=== PATIENT | female | born 1985 | race Caucasian/White ===

== ENCOUNTER 2022-03-01 13:30 | Outpatient (CLI) | payer OTHER, SELFPAY ==
--- NOTE | ~2022-03-01 | US_ITS ---
EXAMINATION: US thyroid DATE: 03/01/2022 14:32 INDICATION: thyroid nodule TECHNIQUE: Multiple ultrasound images of the thyroid were obtained. COMPARISON: None. FINDINGS: The right thyroid lobe measures 5.3 x 2.5 x 2.0 cm. The left thyroid lobe measures 5.3 1.6 x 1.3 cm. There are multiple bilateral thyroid nodules. The largest is a wider than tall 2.4 cm mixed solid an d cystic nodule with smooth margins and hypoechoic solid component with few internal echogenic foci ( TI-RADS 4, moderately suspicious , FNA if >=1.5 cm, annual followup is >=1 cm). There are several sma ller solid or predominantly solid nodule with otherwise similar imaging features (TI-RADS 5, highly s uspicious , FNA if >=1.0 cm, annual followup is >0.5 cm). These measure 0.9 cm in the mid right thyro id lobe 3 mm at the thyroid isthmus and 1.2 cm and 0.6 cm in the left thyroid lobe. IMPRESSION: 1. Multinodular goiter. Recommend ultrasound-guided biopsy of the largest TI RADS 5 nodule measuring 1.2 cm in the left thyroid lobe. Would also consider ultrasound-guided biopsy of the 2.4 cm TI RADS 4 right thyroid nodule. Reviewed, dictated and finalized at location A. R RUNNER IMPRESSION: 1. Multinodular goiter. Recommend ultrasound-guided biopsy of the largest TI RA DS 5 nodule measuring 1.2 cm in the left thyroid lobe. Would also consider ultr asound-guided biopsy of the 2.4 cm TI RADS 4 right thyroid nodule.
== END 2022-03-01 13:31 | disposition home or self-care (01) ==
LOC: ANHIMG 13:34
PROVIDERS: PCP Pediatrics; Visit Provider Obstetrics & Gynecology
DX: E04.2 Nontoxic multinodular goiter (principal)
CPT/HCPCS: 76536

== ENCOUNTER 2022-03-22 09:10 | Outpatient (CLI) | payer OTHER, SELFPAY ==
--- NOTE | ~2022-03-22 | US_ITS ---
EXAMINATION: US FNA additional, US FNA w image guidance DATE: 03/22/2022 09:59 INDICATION: Bilateral thyroid nodules TECHNIQUE: A time-out was performed to verify the patient's name, date of , and procedure to be performed . The procedure and its benefits and risks were discussed with the patient. Risks specifically discus sed included bleeding and infection. The patient understood the risks and agreed to proceed. The neck was prepped and draped in the usual sterile manner. Attention was first turned to the left thyroid n odule. 3 mL 1% lidocaine was used for local anesthesia. 6 passes were made with a 25G needle into th e lesion. Appropriate needle location was documented with continuous sonographic guidance. Attentio n was intensity right thyroid nodule. An additional 3 mL 1% lidocaine was used for local anesthesia. 6 passes were made with a 25G needle into the lesion. Appropriate needle location was documented wit h continuous sonographic guidance. Sterile bandages were applied. There were no immediate complicati ons. FINDINGS: Grayscale ultrasound images demonstrate biopsy needles advanced into a 1.2 cm TI RADS 5 left thyroid nodule. Subsequent images demonstrate biopsy needles advanced into the 2.2 cm TI RADS 4 right thyroid nodule. IMPRESSION: 1. Successful ultrasound-guided fine needle aspiration of a 1.2 cm TI RADS 5 left thyroid nodule. 2. Successful ultrasound-guided fine-needle aspiration of a 2.2 cm TI RADS 4 right thyroid nodule. Reviewed, dictated and finalized at location A. PY STRINGER IMPRESSION: 1. Successful ultrasound-guided fine needle aspiration of a 1.2 cm TI RADS 5 l eft thyroid nodule. 2. Successful ultrasound-guided fine-needle aspiration of a 2.2 cm TI RADS 4 ri ght thyroid nodule.
== END 2022-03-22 09:11 | disposition home or self-care (01) ==
PROVIDERS: PCP Pediatrics; Visit Provider Obstetrics & Gynecology
DX: R92.8 Other abnormal and inconclusive findings on diagnostic imaging of breast (principal)
CPT/HCPCS: 10005; 10006; 88173; 88305

== ENCOUNTER 2022-08-17 10:55 | Outpatient (CLI) | payer OTHER, SELFPAY ==
[2022-08-17 11:16] VITALS: BP 141/95; PULSE 89
[2022-08-17 11:30] VITALS: BP 135/95; PULSE 87
[2022-08-17 11:33] LABS: Basophils Percent Auto 0.3 % (0.2-1.2); Eosinophils Absolute Auto 0.2 K/mm3 (0-0.3); Eosinophils Percent Auto 2.3 % (0-4.4); Hematocrit 34.4 % (37.0-47.0); Hemoglobin 11.2 g/dL (12.0-15.0); Immature Granulocyte Absolute 0.03 K/mm3 (0.00-0.031); Immature Granulocyte Percent A 0.4 % (0-0.5); Lymphocytes Absolute Auto 1.75 K/mm3 (0.9-3.2); Mean Corpuscular HGB Conc 32.6 g/dl (32-36); Mean Corpuscular Hemoglobin 29.3 pg (26-34); Mean Corpuscular Volume 90.1 fl (80-100); Mean Platelet Volume 9.2 fl (7.4-10.4); Monocytes Absolute Auto 0.7 K/mm3 (0.1-0.6); Monocytes Percent Auto 9.2 % (2.6-8.5); Neutrophils Absolute Auto 5.3 K/mm3 (1.3-6.7); Neutrophils Percent Auto 65.8 % (45.5-73.1); Platelet Count Result 260 k/mm3 (150-375); Red Blood Count 3.82 M/mm3 (4.2-5.4)
[2022-08-17 11:41] LABS: Appearance Urine Cloudy (Clear); Bacteria Urine Rare /hpf; Bilirubin Urine Negative (Negative); Blood Urine Negative (Negative); Color Urine Yellow (Yellow); Glucose Urine UA Negative (Negative); Ketones Urine Negative (Negative); Leukocyte Esterase Ur 1+ LEU/UL (NEGATIVE); Nitrate Urine Negative (Negative); Non Pathogenic Casts 0-2; Protein Urine Trace mg/dL (Negative); RBC Urine 0-2 /hpf (0-2); Specific Grav Ur 1.012 (1.001-1.035); Squamous Epithelial Cell Urine Many /hpf (Few); Urobilinogen Urine 0.2 mg/dL (<2.0)
[2022-08-17 11:45] VITALS: BP 143/91; PULSE 84
[2022-08-17 11:45] LABS: Alanine Aminotransferase 26 U/L (6-35); Albumin Level 3.6 g/dL (3.5-5.1); Alkaline Phosphatase 130 U/L (38-126); Anion Gap 4 mmol/L (8-16); Aspartate Amino Transferase 33 U/L (14-36); Bilirubin,Total 0.3 mg/dL (0.2-1.3); Blood Urea Nitrogen 5 mg/dL (7-17); Calcium 8.9 mg/dL (8.4-10.2); Carbon Dioxide 22 mmol/L (22-30); Chloride 109 mmol/L (98-107); Estimated Glomerular Filt Rate > 60; Glucose 89 mg/dL (65-110); Potassium 3.8 mmol/L (3.4-5.0); Sodium 135 mmol/L (137-145); Uric Acid 5.4 mg/dL (2.5-7.5)
[2022-08-17 11:51] LABS: Add Urine Microscopic? YES
[2022-08-17 11:57] VITALS: BMI 29.4
[2022-08-17 12:25] LABS: Creatinine Urine 78.1 mg/dL; Total Protein Urine Random 14 mg/dL; Ur Ttl Prot Creatinine Ratio 0.18 mg/mg (0-0.20)
--- NOTE | 2022-08-17 12:30 | PC.NURSE ---
Dr. Riley on the unit. Lab results and blood pressures reviewed. NST reactive. MD request pt to see him in the office 1 week from today. Pt okay to go home.
[2022-08-17 12:40] VITALS: BP 141/95; PULSE 87
== END 2022-08-17 12:40 | disposition home or self-care (01) ==
LOC: ANHOBOP 10:59 → ANHOBPP 11:00
PROVIDERS: PCP Pediatrics; Visit Provider Obstetrics & Gynecology
DX: O13.9 Gestational [pregnancy-induced] hypertension without significant proteinuria, unspecified trimester (principal); Z3A.00 Weeks of gestation of pregnancy not specified
CPT/HCPCS: 36415; 59025; 80053; 81001; 82570; 84156; 84550; 85025; 87086; 87088; 99199

== ENCOUNTER 2022-08-24 08:40 | Outpatient (CLI) | payer OTHER, SELFPAY ==
[2022-08-24 09:06] VITALS: BP 145/93; PULSE 87
[2022-08-24 09:13] LABS: Basophils Percent Auto 0.1 % (0.2-1.2); Eosinophils Absolute Auto 0.2 K/mm3 (0-0.3); Eosinophils Percent Auto 2.1 % (0-4.4); Hemoglobin 11.6 g/dL (12.0-15.0); Immature Granulocyte Absolute 0.03 K/mm3 (0.00-0.031); Immature Granulocyte Percent A 0.3 % (0-0.5); Lymphocytes Absolute Auto 1.74 K/mm3 (0.9-3.2); Mean Corpuscular HGB Conc 33.1 g/dl (32-36); Mean Corpuscular Hemoglobin 29.4 pg (26-34); Mean Corpuscular Volume 88.6 fl (80-100); Mean Platelet Volume 9.4 fl (7.4-10.4); Monocytes Absolute Auto 0.7 K/mm3 (0.1-0.6); Monocytes Percent Auto 7.2 % (2.6-8.5); Neutrophils Absolute Auto 6.6 K/mm3 (1.3-6.7); Neutrophils Percent Auto 71.3 % (45.5-73.1); Platelet Count Result 269 k/mm3 (150-375); Red Blood Count 3.95 M/mm3 (4.2-5.4); Red Cell Distribution Width 14.3 % (11.5-14.5); White Blood Count 9.2 K/mm3 (4.5-10.0)
[2022-08-24 09:15] VITALS: BP 136/90; PULSE 87
[2022-08-24 09:17] LABS: Add Urine Microscopic? YES; Appearance Urine Clear (Clear); Bacteria Urine None Seen /hpf; Bilirubin Urine Negative (Negative); Blood Urine Negative (Negative); Color Urine Yellow (Yellow); Glucose Urine UA Negative (Negative); Ketones Urine Negative (Negative); Leukocyte Esterase Ur 1+ LEU/UL (NEGATIVE); Nitrate Urine Negative (Negative); Non Pathogenic Casts 0-2; Protein Urine Negative (Negative); RBC Urine 0-2 /hpf (0-2); Specific Grav Ur 1.015 (1.001-1.035); Squamous Epithelial Cell Urine Moderate /hpf (Few); Urobilinogen Urine 0.2 mg/dL (<2.0); pH Urine 6.5 (5.0-9.0)
[2022-08-24 09:30] VITALS: BP 140/93; PULSE 87
[2022-08-24 09:45] VITALS: BP 139/92; PULSE 95
[2022-08-24 09:53] LABS: Alanine Aminotransferase 24 U/L (6-35); Albumin Level 3.8 g/dL (3.5-5.1); Alkaline Phosphatase 145 U/L (38-126); Anion Gap 9 mmol/L (8-16); Aspartate Amino Transferase 27 U/L (14-36); Bilirubin,Total 0.3 mg/dL (0.2-1.3); Blood Urea Nitrogen 7 mg/dL (7-17); Calcium 9.5 mg/dL (8.4-10.2); Carbon Dioxide 20 mmol/L (22-30); Chloride 107 mmol/L (98-107); Estimated Glomerular Filt Rate > 60; Glucose 87 mg/dL (65-110); Potassium 3.9 mmol/L (3.4-5.0); Sodium 136 mmol/L (137-145); Uric Acid 6.2 mg/dL (2.5-7.5)
[2022-08-24 10:00] VITALS: BP 138/82; PULSE 79
[2022-08-24 10:15] VITALS: BP 139/86; PULSE 83
[2022-08-24 11:40] LABS: Total Protein Urine Random 10 mg/dL; Ur Ttl Prot Creatinine Ratio 0.09 mg/mg (0-0.20)
== END 2022-08-24 10:37 | disposition home or self-care (01) ==
LOC: ANHOBOP 08:44 → ANHOBPP 08:44
PROVIDERS: PCP Pediatrics; Visit Provider Obstetrics & Gynecology
DX: O13.9 Gestational [pregnancy-induced] hypertension without significant proteinuria, unspecified trimester (principal); Z3A.00 Weeks of gestation of pregnancy not specified
CPT/HCPCS: 36415; 59025; 80053; 81001; 82570; 84156; 84550; 85025; 87086; 87088; 99199

== ENCOUNTER 2022-08-25 12:29 | Outpatient (NON) | payer OTHER, SELFPAY ==
[2022-08-25 12:29] VITALS: BMI 29.5
[2022-08-25 13:09] LABS: Collection Time Urine 24 HOURS; Patient Weight 177 Lbs
[2022-08-25 13:10] LABS: Total Volume 24 Hour Urine 3500 ml
[2022-08-25 13:15] LABS: Specific Gravity Ur 1.012; Total Volume 24 Hour Urine 3500 ml
[2022-08-25 13:19] LABS: Total Protein Urine 24 Hr 455 mg/24hr (28-141); Total Protein Urine Random 13 mg/dL
[2022-08-25 13:47] LABS: Creatinine Clearance Urine 173.4 ml/min (75-125); Creatinine Urine 38.6 mg/dL
== END 2022-08-25 12:30 | disposition home or self-care (01) ==
LOC: ANHOBOP 12:49
PROVIDERS: PCP Pediatrics; Visit Provider Obstetrics & Gynecology
DX: O16.9 Unspecified maternal hypertension, unspecified trimester (principal); Z3A.00 Weeks of gestation of pregnancy not specified
CPT/HCPCS: 81050; 82575; 84156

== ENCOUNTER 2022-08-31 13:49 | Outpatient (CLI) | payer OTHER, SELFPAY ==
[2022-08-31 14:08] VITALS: BP 146/90; PULSE 86
[2022-08-31 14:15] VITALS: BP 141/90; PULSE 83
[2022-08-31 14:24] LABS: Basophils Percent Auto 0.1 % (0.2-1.2); Eosinophils Absolute Auto 0.2 K/mm3 (0-0.3); Eosinophils Percent Auto 2.4 % (0-4.4); Hematocrit 31.3 % (37.0-47.0); Hemoglobin 10.5 g/dL (12.0-15.0); Immature Granulocyte Absolute 0.03 K/mm3 (0.00-0.031); Immature Granulocyte Percent A 0.4 % (0-0.5); Lymphocytes Absolute Auto 1.63 K/mm3 (0.9-3.2); Lymphocytes Percent Auto 21.5 % (18.3-44.2); Mean Corpuscular HGB Conc 33.5 g/dl (32-36); Mean Corpuscular Hemoglobin 29.6 pg (26-34); Mean Corpuscular Volume 88.2 fl (80-100); Mean Platelet Volume 9.6 fl (7.4-10.4); Monocytes Absolute Auto 0.6 K/mm3 (0.1-0.6); Monocytes Percent Auto 7.9 % (2.6-8.5); Neutrophils Absolute Auto 5.1 K/mm3 (1.3-6.7); Neutrophils Percent Auto 67.7 % (45.5-73.1); Platelet Count Result 241 k/mm3 (150-375); Red Blood Count 3.55 M/mm3 (4.2-5.4); Red Cell Distribution Width 14.5 % (11.5-14.5); White Blood Count 7.6 K/mm3 (4.5-10.0)
[2022-08-31 14:30] VITALS: BP 138/89; PULSE 80
[2022-08-31 14:30] LABS: Appearance Urine Cloudy (Clear); Bacteria Urine None Seen /hpf; Bilirubin Urine Negative (Negative); Blood Urine Negative (Negative); Color Urine Yellow (Yellow); Glucose Urine UA Negative (Negative); Ketones Urine Negative (Negative); Leukocyte Esterase Ur Trace LEU/UL (NEGATIVE); Nitrate Urine Negative (Negative); Non Pathogenic Casts 0-2; Protein Urine Trace mg/dL (Negative); RBC Urine 0-2 /hpf (0-2); Specific Grav Ur 1.017 (1.001-1.035); Squamous Epithelial Cell Urine Few /hpf (Few); Urobilinogen Urine 0.2 mg/dL (<2.0); pH Urine 5.5 (5.0-9.0)
[2022-08-31 14:34] LABS: Alanine Aminotransferase 24 U/L (6-35); Albumin Level 3.5 g/dL (3.5-5.1); Alkaline Phosphatase 123 U/L (38-126); Anion Gap 6 mmol/L (8-16); Aspartate Amino Transferase 29 U/L (14-36); Bilirubin,Total 0.3 mg/dL (0.2-1.3); Blood Urea Nitrogen 10 mg/dL (7-17); Calcium 9.7 mg/dL (8.4-10.2); Carbon Dioxide 22 mmol/L (22-30); Chloride 106 mmol/L (98-107); Estimated Glomerular Filt Rate > 60; Glucose 104 mg/dL (65-110); Potassium 3.8 mmol/L (3.4-5.0); Sodium 134 mmol/L (137-145); Uric Acid 6.6 mg/dL (2.5-7.5)
[2022-08-31 14:37] LABS: Add Urine Microscopic? YES
[2022-08-31 14:45] VITALS: BP 125/81; PULSE 81
[2022-08-31 14:52] LABS: Creatinine Urine 124.5 mg/dL; Total Protein Urine Random 20 mg/dL; Ur Ttl Prot Creatinine Ratio 0.16 mg/mg (0-0.20)
--- NOTE | 2022-08-31 14:58 | PC.NURSE ---
Called Dr. Riley with lab results and BPs. Reactive tracing. July D/C home.
== END 2022-08-31 15:02 | disposition home or self-care (01) ==
LOC: ANHOBOP 13:57 → ANHOBPP 14:02
PROVIDERS: PCP Pediatrics; Visit Provider Obstetrics & Gynecology
DX: O13.9 Gestational [pregnancy-induced] hypertension without significant proteinuria, unspecified trimester (principal); Z3A.00 Weeks of gestation of pregnancy not specified
CPT/HCPCS: 36415; 59025; 80053; 81001; 82570; 84156; 84550; 85025; 87086; 87088; 99199

== ENCOUNTER 2022-09-08 14:51 | Observation (INO) | payer OTHER, SELFPAY ==
[2022-09-08] VITALS (14 sets, daily range): BP systolic 144–163; BP diastolic 95–113; PULSE 74–90; BMI 30.6
[2022-09-08 16:01] LABS: Basophils Percent Auto 0.2 % (0.2-1.2); Eosinophils Absolute Auto 0.3 K/mm3 (0-0.3); Eosinophils Percent Auto 2.7 % (0-4.4); Hematocrit 32.9 % (37.0-47.0); Hemoglobin 10.9 g/dL (12.0-15.0); Immature Granulocyte Absolute 0.05 K/mm3 (0.00-0.031); Immature Granulocyte Percent A 0.5 % (0-0.5); Lymphocytes Absolute Auto 2.01 K/mm3 (0.9-3.2); Mean Corpuscular HGB Conc 33.1 g/dl (32-36); Mean Corpuscular Hemoglobin 29.3 pg (26-34); Mean Corpuscular Volume 88.4 fl (80-100); Mean Platelet Volume 9.7 fl (7.4-10.4); Monocytes Absolute Auto 0.8 K/mm3 (0.1-0.6); Monocytes Percent Auto 7.9 % (2.6-8.5); Neutrophils Absolute Auto 6.5 K/mm3 (1.3-6.7); Neutrophils Percent Auto 67.7 % (45.5-73.1); Platelet Count Result 266 k/mm3 (150-375); Red Blood Count 3.72 M/mm3 (4.2-5.4); Red Cell Distribution Width 14.8 % (11.5-14.5); White Blood Count 9.6 K/mm3 (4.5-10.0)
[2022-09-08 16:06] LABS: Appearance Urine Clear (Clear); Bacteria Urine Rare /hpf; Bilirubin Urine Negative (Negative); Blood Urine Negative (Negative); Color Urine Yellow (Yellow); Glucose Urine UA Negative (Negative); Ketones Urine Negative (Negative); Leukocyte Esterase Ur 1+ LEU/UL (NEGATIVE); Nitrate Urine Negative (Negative); Non Pathogenic Casts 0-2; Protein Urine 1+ mg/dL (Negative); RBC Urine 0-2 /hpf (0-2); Specific Grav Ur 1.018 (1.001-1.035); Squamous Epithelial Cell Urine Moderate /hpf (Few); Urobilinogen Urine 0.2 mg/dL (<2.0); WBC Urine 21-50 /hpf (0-3)
[2022-09-08 16:12] LABS: Alanine Aminotransferase 21 U/L (6-35); Alkaline Phosphatase 174 U/L (38-126); Anion Gap 9 mmol/L (8-16); Aspartate Amino Transferase 29 U/L (14-36); Bilirubin,Total 0.4 mg/dL (0.2-1.3); Blood Urea Nitrogen 11 mg/dL (7-17); Calcium 10.2 mg/dL (8.4-10.2); Carbon Dioxide 22 mmol/L (22-30); Chloride 107 mmol/L (98-107); Estimated Glomerular Filt Rate > 60; Glucose 82 mg/dL (65-110); Potassium 3.9 mmol/L (3.4-5.0); Sodium 138 mmol/L (137-145); Uric Acid 6.4 mg/dL (2.5-7.5)
[2022-09-08 16:17] LABS: Creatinine Urine 86.6 mg/dL; Total Protein Urine Random 54 mg/dL; Ur Ttl Prot Creatinine Ratio 0.62 mg/mg (0-0.20)
--- NOTE | 2022-09-08 16:22 | OBADM ---
This patient, Marina Corona, admitted to the OB room OB Post 115 for observation. Patient/family oriented to hospital policies and general routines including ID bracelet, bed and alarms, visiting hours, pain management, procedures, bathroom and other care routines, personal items, smoking policy, room service/diet, and visiting hours. Patient/Family are encouraged to report perceived risks to care and to ask questions if they do not understand what they are told or what they should do.
[2022-09-08] MEDS: LABETALOL HCL 100 MG TABLET 200 MG PO (16:24)
[2022-09-08 16:31] LABS: Add Urine Microscopic? YES
[2022-09-08] MEDS: CALCIUM CARBONATE (TUMS) 500 MG (200 MG ELEMENTAL) PO (16:50)
[2022-09-08] MEDS: LABETALOL HCL 100 MG TABLET PO (17:32)
--- NOTE | 2022-09-11 12:45 | PM.OBTRLD ---
OB - Triage/Final Diagnosis Visit Information Reason for evaluation: threatened labor Comments/Additional reasons for admission: I have assessed the risk for this patient, Marina Corona, and determined that she would benefit from observation care. Evaluation Laboratory results: Laboratory Tests 09/08/22 15:46 WBC 9.6 RBC 3.72 L Hgb 10.9 L Hct 32.9 L MCV 88.4 MCH 29.3 MCHC 33.1 RDW 14.8 H Plt Count 266 MPV 9.7 Immature Gran % (Auto) 0.5 Neut % (Auto) 67.7 Lymph % (Auto) 21.0 Traill % (Auto) 7.9 Eos % (Auto) 2.7 Baso % (Auto) 0.2 Lymph # (Auto) 2.01 Traill # (Auto) 0.8 H Eos # (Auto) 0.3 Baso # (Auto) 0.0 Abs Immat Gran (auto) 0.05 H Absolute Neuts (auto) 6.5 Absolute Nucleated RBC 0.0 Nucleated RBC % 0.0 Sodium 138 Potassium 3.9 Chloride 107 Carbon Dioxide 22 Anion Gap 9 BUN 11 Creatinine 0.60 L Estim Creat Clear Calc Not Reportable Estimated GFR > 60 Glucose 82 Uric Acid 6.4 Calcium 10.2 Total Bilirubin 0.4 AST 29 ALT 21 Alkaline Phosphatase 174 H Total Protein 8.0 Albumin 4.0 Urine Color Yellow Urine Appearance Clear Urine pH 6.0 Ur Specific [place] 1.018 Urine Protein 1+ H Urine Glucose (UA) Negative Urine Ketones Negative Ur Blood (Man) Negative Urine Nitrate Negative Urine Bilirubin Negative Urine Urobilinogen 0.2 Ur Leukocyte Esterase 1+ H Urine RBC 0-2 Urine WBC 21-50 Ur Squamous Epith Cells Moderate Urine Bacteria Rare Urine Casts 0-2 U Random Total Protein 54 Urine Creatinine 86.6 Protein/Creat Ratio 2 0.62 H
== END 2022-09-08 18:34 | disposition home or self-care (01) ==
PROVIDERS: Admitting Provider Obstetrics & Gynecology; PCP Pediatrics; Visit Provider Obstetrics & Gynecology
DX: O47.1 False labor at or after 37 completed weeks of gestation (principal); O16.3 Unspecified maternal hypertension, third trimester; Z3A.37 37 weeks gestation of pregnancy
CPT/HCPCS: 36415; 80053; 81001; 82570; 84156; 84550; 85025; 87086; 87088; A9270; G0378; G0379

== ENCOUNTER 2022-09-11 17:04 | Inpatient (IN) | payer OTHER, SELFPAY ==
[2022-09-11] VITALS (26 sets, daily range): BP systolic 134–156; BP diastolic 80–97; PULSE 72–94; RESP 18; TEMP 36.6–36.8; O2SAT 96–99; BMI 30.4
--- NOTE | 2022-09-11 17:04 | LDADM ---
This patient, Marina Corona, was admitted to Labor/Delivery/Recovery 102 on 09/11/22 at 17:04. Plans for labor, pain management and were discussed with patient. Patient/family oriented to hospital policies and general routines including ID bracelet, bed and alarms, visiting hours, pain management, procedures, bathroom and other care routines, personal items, smoking policy, room service/diet and guest tray routines, infant security routines, and visiting hours. Patient/Family are encouraged to report perceived risks to care and to ask questions if they do not understand what they are told or what they should do. See OBIX for further documentation.
[2022-09-11 17:51] LABS: Basophils Percent Auto 0.2 % (0.2-1.2); Eosinophils Absolute Auto 0.3 K/mm3 (0-0.3); Eosinophils Percent Auto 2.3 % (0-4.4); Hemoglobin 10.3 g/dL (12.0-15.0); Immature Granulocyte Absolute 0.04 K/mm3 (0.00-0.031); Immature Granulocyte Percent A 0.4 % (0-0.5); Lymphocytes Absolute Auto 1.58 K/mm3 (0.9-3.2); Lymphocytes Percent Auto 14.3 % (18.3-44.2); Mean Corpuscular HGB Conc 33.2 g/dl (32-36); Mean Corpuscular Hemoglobin 29.3 pg (26-34); Mean Corpuscular Volume 88.3 fl (80-100); Mean Platelet Volume 10.3 fl (7.4-10.4); Monocytes Absolute Auto 0.8 K/mm3 (0.1-0.6); Monocytes Percent Auto 7.6 % (2.6-8.5); Neutrophils Absolute Auto 8.3 K/mm3 (1.3-6.7); Neutrophils Percent Auto 75.2 % (45.5-73.1); Platelet Count Result 232 k/mm3 (150-375); Red Blood Count 3.51 M/mm3 (4.2-5.4); Red Cell Distribution Width 15.2 % (11.5-14.5); White Blood Count 11.1 K/mm3 (4.5-10.0)
[2022-09-11 18:04] LABS: Alanine Aminotransferase 20 U/L (6-35); Albumin Level 3.5 g/dL (3.5-5.1); Alkaline Phosphatase 157 U/L (38-126); Anion Gap 1 mmol/L (8-16); Aspartate Amino Transferase 27 U/L (14-36); Bilirubin,Total 0.3 mg/dL (0.2-1.3); Blood Urea Nitrogen 12 mg/dL (7-17); Calcium 9.5 mg/dL (8.4-10.2); Carbon Dioxide 21 mmol/L (22-30); Chloride 109 mmol/L (98-107); Estimated CRCL calculation 90 ml/min; Estimated Glomerular Filt Rate > 60; Glucose 92 mg/dL (65-110); Potassium 4.3 mmol/L (3.4-5.0); Sodium 131 mmol/L (137-145); Uric Acid 7.7 mg/dL (2.5-7.5)
[2022-09-11] MEDS: LACTATED RINGERS 1,000 ML 125 ML IV CONT (18:09)
[2022-09-11] MEDS: AMPICILLIN 2 GM/NS 100 ML 2 GM/100 ML BAG IVPB (18:09)
[2022-09-11] MEDS: DINOPROSTONE 10 MG VAG INSERT VAGINAL (18:10)
[2022-09-11] MEDS: LABETALOL HCL 100 MG TABLET 200 MG PO (21:13)
[2022-09-11] MEDS: AMPICILLIN 1 GM/NS 50 ML 1 GM/50 ML BAG IVPB (22:14)
[2022-09-11] MEDS: ZOLPIDEM TARTRATE (*CRX) 5 MG TABLET PO (22:15)
[2022-09-12] VITALS (183 sets, daily range): BP systolic 116–187; BP diastolic 60–127; PULSE 65–118; RESP 16–18; TEMP 36.4–37.5; O2SAT 91–100
[2022-09-12] MEDS: AMPICILLIN 1 GM/NS 50 ML 1 GM/50 ML BAG IVPB ×4 (02:04→14:20)
[2022-09-12] MEDS: OXYTOCIN 30 UNITS/NS 500 ML 30 UNITS/500 ML BAG 6 UNITS IV CONT (06:45)
[2022-09-12] MEDS: FAMOTIDINE 20 MG/2 ML VIAL IV PUSH (07:41)
[2022-09-12] MEDS: LABETALOL HCL 100 MG TABLET 200 MG PO (08:02)
[2022-09-12] MEDS: LACTATED RINGERS 1,000 ML 125 ML IV CONT ×2 (10:34→19:23)
--- NOTE | 2022-09-12 13:13 | P.HP_ITS ---
Obstetrics - Admit Note Admission Note: Late entry from 0845 on 09/12/22 record reviewed. Additions to the history and/or subsequent changes in the physical findings follow. 37 y/o G1 at 37 4/7 weeks with chronic HTN, now with worsening bp control. No headaches, visual field change, abdominal pain or edema. GBS bacteruria. C ervidil overnight, has been withdrawn. Now receiving oxytocin. AVSS ABD soft, nontender, gravid, vertex EXT nontender Cervix 2/80/-2. AROM with clear fluid. IUPC placed. A: IUP at 37 4/7 weeks with CHTN, worsening bp control. Doubt superimposed preeclampsia. GBS bacteruria. P: Ampicillin, oxytocin. Anticipate .
--- NOTE | 2022-09-12 13:17 | PM.OBPNLAB ---
Pain Control Date/time seen: 09/12/22 13:17 Comments: Comfortable with epidural. Pelvic Exam Dilation (cm): 4 Effacement (%): 90 station: -1 Contractions Contraction frequency: 3 Contraction pattern: Regular Status status: Category l Assessment and Plan Comments: Continue oxytocin, ampicillin. Anticipate .
[2022-09-12] MEDS: SODIUM CHLORIDE 0.9% IV 300 ML 600 ML I-UTERINE (13:47)
[2022-09-12] MEDS: ONDANSETRON INJ 4 MG/2 ML VIAL IV PUSH ×2 (14:22→18:57)
--- NOTE | 2022-09-12 16:21 | PC.NURSE ---
1040 - Introductions were made and mother shared how she would like to feed her baby with . Encouraged mother to place [id number] until the first feeding if is stable and to wait on the weight to help stabilize, reduce stress, and improve latching by allowing infant time to explore parent's chest using instincts. Education was shared on how to protect her milk supply with latching infant and/or using hand expression to remove milk if infant doesn't latch in the first hour, then finger feed colostrum to the to preserve breast focus. Demonstration given on how to hand express using tool. Resources provided with educational trifold for bonding and feeding infant. Parents voiced understanding of information and to call if there is a request for assistance.
--- NOTE | 2022-09-12 16:53 | PM.OBPNLAB ---
Pain Control Date/time seen: 09/12/22 16:53 Comments: Comfortable with epidural. Pelvic Exam Dilation (cm): 10 Effacement (%): 100 station: +1 Contractions Contraction frequency: 4 Contraction pattern: Regular Status status: Category l Assessment and Plan Pitocin rate (mU/min): 12 Comments: Begin pushing.
[2022-09-12] MEDS: miSOPROStol 200 MCG TABLET 1000 MCG RECTAL (18:30)
[2022-09-12] MEDS: OXYTOCIN 30 UNITS/NS 500 ML 30 UNITS/500 ML BAG 125 UNITS IV CONT (18:44)
--- NOTE | 2022-09-12 19:21 | PM.OBPRVD ---
OB - Delivery Note Procedure Delivery date: 09/12/22 Procedure: Induction of labor with Events: Chronic Hypertension and Positive Group B Strep (GBS) Induction method: Per Cervidil Protocol Delivery augmentation: Pitocin Delivery monitor: External FHT, External Uterine and Internal Uterine Route of delivery: Laceration Description: Perineal - 2nd Degree and Vaginal Delivery repair: vicryl (3-0) Specimen: Yes (Cord blood, placenta) Quantitative Blood Loss (ml): 1,175 Anesthesia type: Epidural Disposition: PACU Complications: Hemorrhage. Narrative: 37 y/o G1 at 37 4/7 weeks gestation who presented to the hospital for induction of labor. She was given ampicillin for GBS bacteruria. Cervidil was placed overnight, then withdrawn the next morning. Oxytocin was administered intravenously. Amniotomy was performed with return of clear fluid. She received an epidural for pain control. Her labor progressed and her cervix dilated completely. She pushed with good effort and delivered the 's head to the perineum, followed by the body. The nose and mouth were bulb suctioned. After a delay, the cord was clamped and cut. The infant was handed off the field. Cord blood was collected. The placenta delivered spontaneously and was grossly normal in appearance. The usual 3 vessel cord was noted. Uterine atony was addressed with uterine massage, IV oxytocin, and 1000 mcg Cytotec. The uterus responded well. A second degree midline perineal laceration was sustained. This was reapproximated using 3 0 Vicryl in the usual layered fashion, and hemostasis was excellent here. Bleeding was persistent from complicated lacerations of an apparent and previously unrecognized vaginal septum. The vaginal lacerations were reapproximated with running sutures of 3-0 vicryl, but there was still some oozing. A López catheter was replaced and 5 feet of vaginal packing placed. Needle and instrument counts were correct. An IV fluid bolus was administered, and a second IV line was placed. She was given TXA 1 gram IV. Hemostasis improved. Plan to follow closely. I was present and scrubbed for the entire delivery. Baby Date of : 09/12/22 Time of : 18:18 Weeks of gestation at delivery: 37 Infant gender: Male Weight (pounds): 6 Weight (ounces): 10 presentation: vertex position: Left Occiput Anterior Placenta delivery description: Spontaneous and Normal Configuration Cord Vessel Description: 3 Vessels, Nuchal Cord (x2) and Delayed Cord Clamping score one minute: 8 score five minutes: 9
[2022-09-12 19:28] LABS: Hematocrit 27.5 % (37.0-47.0); Hemoglobin 8.8 g/dL (12.0-15.0)
[2022-09-12] MEDS: TRANEXAMIC ACID 1,000MG/ISO100 1,000 MG/100 ML BAG 200 MG IVPB (19:31)
--- NOTE | 2022-09-12 19:33 | PM.OBDSVD ---
DS: Admitting Diagnosis Discharge Date 09/15/22 Admitting Diagnosis IUP at 37 weeks Chronic HTN with worsening bp control GBS bacteruria DS: Discharge Diagnosis Discharge Diagnosis (1) (normal spontaneous vaginal delivery): Code(s): O80 - Encounter for full-term uncomplicated delivery Status: Acute (2) Chronic hypertension affecting : Code(s): O10.919 - Unspecified pre-existing hypertension complicating , unspecified trimester Status: Acute (3) GBS bacteriuria: Code(s): R82.71 - Bacteriuria Status: Acute (4) hemorrhage of vagina: Code(s): O72.1 - Other immediate hemorrhage Status: Acute OB - DS: Summary OB Procedures : None and PIH Mgmt OB Procedures Intrapartum: Spontaneous Vag Delivery and GBS prophylaxis OB Procedures: : Transfusion Time Spent with Patient Time attestation: Total time spent providing and/or coordinating discharge services: DS: Data Data Completed and Pending Pending studies at discharge: Pending at discharge 09/12/22 18:22 Surgical [PTH] Routine Labs on day of discharge: Labs from last 24 hours 09/12/22 19:18 Hgb 8.8 L Hct 27.5 L Discharge Plan Discharge Attending physician on discharge: Jean-Paul Riley Discharging Clinician: Jean-Paul Riley Patient Disposition: Home, Self-Care Activity: pelvic rest Diet: regular Discharge Instructions: Call or return if temperature above 100.4? F, increased abdominal pain, increased vaginal bleeding or any new problems. Stand Alone Forms: General Discharge Information Follow-up/Referrals: Jean-Paul Riley MD [Physician] - 6 Weeks Discharge Medications: New Niferex (Sumalate-Quatrefolic) 150 mg iron- 60 mg-1 mg tablet 1 tablet PO DAILY Qty: 30 0RF ibuprofen 600 mg tablet 600 mg PO Q6H PRN (Reason: cramps) Qty: 30 0RF Continued prenat.vits,ihsan,[id number] Tablet 1 tablet PO DAILY Discontinued aspirin [Baby Aspirin] 81 mg Tablet,Chewable 81 mg PO DAILY labetalol 200 mg Tablet 200 mg PO TID Qty: 30 0RF Date of admission: 09/11/22 17:04 Primary Care Provider: LakeshaJignesh Admitting Provider: Jean-Paul Riley Attending physician on admission: Jean-Paul Riley Condition: Stable
[2022-09-12] MEDS: BENZOCAINE 20% AER SPR (*SP) 56 GM CAN 1 SPRAY TOPICAL (20:33)
[2022-09-12] MEDS: WITCH HAZEL 40 PADS 1 PAD TOPICAL (20:33)
[2022-09-12] MEDS: IBUPROFEN SUSPENSION 200 MG/10 ML UDC 600 MG PO (20:33)
--- NOTE | 2022-09-12 22:26 | ADMGEN ---
This patient, Marina Corona, was admitted to OB 2nd Floor Room 283-00. Patient/family oriented to hospital policies and general routines including ID bracelet, bed and alarms, visiting hours, pain management, procedures, bathroom and other care routines, personal items, smoking policy, room service/diet, and visiting hours. Information on how to activate the Rapid Response Team has been discussed. Patient/Family are encouraged to report perceived risks to care and to ask questions if they do not understand what they are told or what they should do.
[2022-09-13] VITALS (19 sets, daily range): BP systolic 125–149; BP diastolic 74–94; PULSE 81–94; RESP 14–20; TEMP 36.3–36.9; O2SAT 95–100
[2022-09-13] MEDS: IBUPROFEN SUSPENSION 200 MG/10 ML UDC 600 MG PO ×2 (01:49→22:19)
[2022-09-13] MEDS: LACTATED RINGERS 1,000 ML 100 ML IV CONT (03:14)
[2022-09-13 06:15] LABS: Hemoglobin 6.6 g/dL (12.0-15.0)
[2022-09-13 06:16] LABS: Hematocrit 19.9 % (37.0-47.0)
[2022-09-13 08:10] LABS: Rapid Plasma Reagin Non-Reactive (NonReactive)
[2022-09-13] MEDS: POLYSACCHARIDE IRON COMPLEX 150 MG CAPSULE PO ×2 (08:30→17:56)
--- NOTE | 2022-09-13 09:14 | PM.OBPNVD ---
OB - PN: Subj Subjective Date/time seen: 09/13/22 09:14 Narrative: Pain OK. Minimal vaginal bleeding overnight. No shortness of breath or chest pain. OB - PN: Obj Data Labs 09/13/22 04:47 09/11/22 17:35 Labs: Laboratory Results - last 24 hr 09/11/22 09/12/22 09/13/22 17:35 19:18 04:47 Hgb 8.8 L 6.6 L* Hct 27.5 L 19.9 L* RPR Non-reactive OB - PN A/P Plan Comments: A: PPD#1, doing well. Anemia secondary to hemorrhage, clinically stable. P: Routine care. She desires circumcision for son - reviewed. Exam Psych: Other: AVSS. BP 130-140 / 80-90. HR 85 I/O OK. UO overnight was 700 mL. ABD soft, nontender, fundus firm Pelvic: Vaginal packing removed. EXT nontender
[2022-09-13 09:45] LABS: Hematocrit 18.3 % (37.0-47.0)
[2022-09-13] MEDS: SODIUM CHLORIDE 0.9% IV 250 ML 30 ML IV CONT (10:00)
[2022-09-13 10:09] LABS: Alanine Aminotransferase 17 U/L (6-35); Albumin Level 2.2 g/dL (3.5-5.1); Alkaline Phosphatase 102 U/L (38-126); Anion Gap -2 mmol/L (8-16); Aspartate Amino Transferase 29 U/L (14-36); Bilirubin,Total 0.2 mg/dL (0.2-1.3); Blood Urea Nitrogen 12 mg/dL (7-17); Calcium 8.1 mg/dL (8.4-10.2); Carbon Dioxide 24 mmol/L (22-30); Chloride 111 mmol/L (98-107); Estimated CRCL calculation 102 ml/min; Estimated Glomerular Filt Rate > 60; Glucose 78 mg/dL (65-110); Potassium 4.4 mmol/L (3.4-5.0); Sodium 133 mmol/L (137-145)
[2022-09-13] MEDS: TUBING, BLOOD PLUM PUMP TUBING 1 EACH XX (10:40)
--- NOTE | 2022-09-13 11:05 | PC.NURSE ---
Dr. Riley at bedside discussing plan of care with patient and . MD had removed vaginal packing moments prior to RN entering room. Pt states feeling a gush of blood, large pool of blood and clots noted. Extra assistance called to room. Fundus firm. Pads changed and weighed resulting in 988cc blood loss. Small amount of trickling noted despite fundus remaining firm. Dr Riley at bedside at 0925, report given. Additional 50cc noted. Pulse and blood pressure in normal range. Vaginal flow stopped. Orders given.
--- NOTE | 2022-09-13 15:50 | PC.NURSE ---
[id number] Purposefully rounded to assess mother's feeding intentions. Parents have chosen to bottle feed their infant since delivery related to complications with bleeding after delivery, tiredness and recovering. Mother states she would like to pump at this time as she feels somewhat better today than yesterday. Breast pump provided due to no attempts to breastfeed since . Instructions given on cleaning, care, usage, that there should be no pain, pumping schedule for milk production, collection, and storage of human milk. Patient was assessed for correct placement, flange size, to pump for comfort and nipple stretching/stimulation for adequate milk production every 3 hours (8 times in 24 hours) 1-2 times at night. Pump flanges provided are to large for mother's anatomy and it causes pain. RN measured the flange size and father of baby ordered a flange to fit mother. Reviewed good handwashing when or touching the breast/nipples to prevent infection. Resources used to facilitate learning were used with the tool, mom and baby guide. Resources provided for inpatient/outpatient with the mom/baby guide and name written on the communication board. Patient is encouraged to rest, relax, and use nipple stretching along with hand expression to stimulate for milk production about every 3 hours for 10 minutes as she feels able to do so. Parents voiced understanding of information, demonstrated learning and will call if there is a request for assistance.
[2022-09-13] MEDS: DOCUSATE SODIUM 100 MG CAPSULE PO (17:56)
[2022-09-13 22:20] LABS: Hematocrit 22.3 % (37.0-47.0); Hemoglobin 7.6 g/dL (12.0-15.0)
[2022-09-14] MEDS: IBUPROFEN SUSPENSION 200 MG/10 ML UDC 600 MG PO ×4 (02:35→20:58)
[2022-09-14 08:30] VITALS: BP 136/85; PULSE 92; RESP 16; TEMP 36.9; O2SAT 99
[2022-09-14] MEDS: DOCUSATE SODIUM 100 MG CAPSULE PO ×2 (08:31→17:46)
[2022-09-14] MEDS: MULTIVITS W-FE,MIN CHEWABLE TABLET 1 TABLET PO (08:31)
[2022-09-14] MEDS: POLYSACCHARIDE IRON COMPLEX 150 MG CAPSULE PO ×2 (08:31→17:46)
--- NOTE | 2022-09-14 09:01 | PM.OBPNVD ---
OB - PN: Subj Subjective Date/time seen: 09/14/22 09:01 Narrative: Pain OK. Still feeling a little weak. But improving from yesterday. Would like to stay another night. OB - PN: Obj Data Labs 09/13/22 22:14 09/13/22 09:40 Labs: Laboratory Results - last 24 hr 09/11/22 09/13/22 09/13/22 17:35 09:32 09:40 Hgb 6.0 L* Hct 18.3 L* Sodium 133 L Potassium 4.4 Chloride 111 H Carbon Dioxide 24 Anion Gap -2 L BUN 12 Creatinine 0.70 Estim Creat Clear Calc 102 Estimated GFR > 60 Glucose 78 Calcium 8.1 L Total Bilirubin 0.2 AST 29 ALT 17 Alkaline Phosphatase 102 Total Protein 5.0 L Albumin 2.2 L Blood Type B Positive Antibody Screen Negative Crossmatch See Detail 09/13/22 22:14 Hgb 7.6 L Hct 22.3 L Sodium Potassium Chloride Carbon Dioxide Anion Gap BUN Creatinine Estim Creat Clear Calc Estimated GFR Glucose Calcium Total Bilirubin AST ALT Alkaline Phosphatase Total Protein Albumin Blood Type Antibody Screen Crossmatch OB - PN A/P Plan day: 2 Comments: A: PPD#2, doing well. S/p hemorrhage, now clinically stable. P: Routine care. Plan home tomorrow. Reviewed circ. Exam Psych: Other: AVSS ABD soft, nontender, fundus firm EXT nontender
[2022-09-14] MEDS: BISACODYL 10 MG SUPPOSITORY RECTAL (09:59)
[2022-09-14 12:20] VITALS: BP 136/93; PULSE 92; RESP 16; TEMP 37.1; O2SAT 98
[2022-09-14 16:00] VITALS: BP 142/92; PULSE 82
[2022-09-14 20:30] VITALS: BP 147/91; PULSE 86; RESP 16; TEMP 36.7; O2SAT 99
[2022-09-15 00:12] VITALS: BP 126/77
[2022-09-15 05:40] VITALS: BP 144/91
[2022-09-15] MEDS: IBUPROFEN SUSPENSION 200 MG/10 ML UDC 600 MG PO (06:50)
[2022-09-15 08:00] VITALS: PULSE 88; RESP 16; O2SAT 98
[2022-09-15 08:10] VITALS: BP 131/86; PULSE 88; RESP 16; TEMP 36.7; O2SAT 98
--- NOTE | 2022-09-15 08:48 | PM.OBPNVD ---
OB - PN: Subj Subjective Date/time seen: 09/15/22 08:48 Narrative: Feeling much better. Would like to go home. OB - PN: Obj Data Labs 09/13/22 22:14 09/13/22 09:40 OB - PN A/P Plan day: 3 Comments: A: PPD#3, doing well. P: Home to f/u 6 weeks. Exam Psych: Other: AVSS ABD soft, nontender, fundus firm EXT nontender
[2022-09-15] MEDS: POLYSACCHARIDE IRON COMPLEX 150 MG CAPSULE PO (09:40)
[2022-09-15] MEDS: MULTIVITS W-FE,MIN CHEWABLE TABLET 1 TABLET PO (09:40)
[2022-09-15] MEDS: DOCUSATE SODIUM 100 MG CAPSULE PO (09:40)
--- NOTE | 2022-09-15 10:23 | PC.NURSE ---
Patient viewed the discharge video Mother & Baby Care, The First Two Weeks . Patient was given the opportunity and encouraged to ask questions. Patient verbalized understanding of information shared and has been given the mother/baby guide for home reference.
[2022-09-16 10:23] VITALS: BP 156/101; PULSE 88; RESP 18; TEMP 37; O2SAT 100
== END 2022-09-15 16:00 | disposition home or self-care (01) | DRG 806 ==
LOC: ANHLDR 09-12 19:36 → ANHOB2 09-12 22:28
PROVIDERS: Admitting Provider Obstetrics & Gynecology; PCP Pediatrics; Visit Provider Obstetrics & Gynecology
DX: O10.92 Unspecified pre-existing hypertension complicating childbirth (principal); O72.1 Other immediate postpartum hemorrhage; Z37.0 Single live birth; O99.824 Streptococcus B carrier state complicating childbirth; O70.1 Second degree perineal laceration during delivery; O69.81X0 Labor and delivery complicated by cord around neck, without compression, not applicable or unspecified; O67.8 Other intrapartum hemorrhage; Z3A.37 37 weeks gestation of pregnancy
CPT/HCPCS: 36415; 36430; 80053; 84550; 85014; 85018; 85025; 86592; 86850; 86900; 86901; 86923; 88307; A9270; J0290; J2405; J2590; J2795; J7030; J7050; J7120; P9016

== ENCOUNTER 2022-09-18 15:35 | Outpatient (CLI) | payer OTHER, SELFPAY ==
[2022-09-18 16:07] VITALS: BP 141/84; PULSE 82
[2022-09-18 16:15] VITALS: BP 138/85; PULSE 82
[2022-09-18 16:24] LABS: Basophils Absolute Auto 0.1 K/mm3 (0.0-0.1); Basophils Percent Auto 0.4 % (0.2-1.2); Eosinophils Absolute Auto 0.4 K/mm3 (0-0.3); Eosinophils Percent Auto 3.2 % (0-4.4); Hematocrit 22.1 % (37.0-47.0); Hemoglobin 7.3 g/dL (12.0-15.0); Immature Granulocyte Absolute 0.15 K/mm3 (0.00-0.031); Immature Granulocyte Percent A 1.2 % (0-0.5); Lymphocytes Absolute Auto 1.65 K/mm3 (0.9-3.2); Lymphocytes Percent Auto 13.7 % (18.3-44.2); Mean Corpuscular Hemoglobin 30.9 pg (26-34); Mean Corpuscular Volume 93.6 fl (80-100); Mean Platelet Volume 8.8 fl (7.4-10.4); Monocytes Absolute Auto 0.8 K/mm3 (0.1-0.6); Monocytes Percent Auto 6.4 % (2.6-8.5); Neutrophils Absolute Auto 9.1 K/mm3 (1.3-6.7); Neutrophils Percent Auto 75.1 % (45.5-73.1); Platelet Count Result 261 k/mm3 (150-375); Red Blood Count 2.36 M/mm3 (4.2-5.4); Red Cell Distribution Width 16.8 % (11.5-14.5); White Blood Count 12.1 K/mm3 (4.5-10.0)
[2022-09-18 16:30] VITALS: BP 143/85; PULSE 90
[2022-09-18 16:33] LABS: Alanine Aminotransferase 35 U/L (6-35); Albumin Level 3.1 g/dL (3.5-5.1); Alkaline Phosphatase 115 U/L (38-126); Anion Gap 4 mmol/L (8-16); Aspartate Amino Transferase 41 U/L (14-36); Bilirubin,Total 0.2 mg/dL (0.2-1.3); Blood Urea Nitrogen 11 mg/dL (7-17); Calcium 8.3 mg/dL (8.4-10.2); Carbon Dioxide 27 mmol/L (22-30); Chloride 105 mmol/L (98-107); Estimated Glomerular Filt Rate > 60; Glucose 83 mg/dL (65-110); Sodium 136 mmol/L (137-145); Uric Acid 6.8 mg/dL (2.5-7.5)
[2022-09-18 16:45] VITALS: BP 141/89; PULSE 86
--- NOTE | 2022-09-18 16:57 | PC.NURSE ---
1645--Lab results and v.s. called to Dr. Riley. Orders to DC pt. home with instructions to continue labetalol at current dose and f/u in office in 2 weeks.
== END 2022-09-18 16:50 | disposition home or self-care (01) ==
LOC: ANHOBOP 15:38 → ANHOBPP 15:39
PROVIDERS: PCP Pediatrics; Visit Provider Obstetrics & Gynecology
DX: O16.5 Unspecified maternal hypertension, complicating the puerperium (principal)
CPT/HCPCS: 36415; 80053; 84550; 85025; 99199

== ENCOUNTER 2022-09-23 08:55 | Emergency (ER) | payer OTHER, SELFPAY ==
[2022-09-23] VITALS (11 sets, daily range): BP systolic 132–162; BP diastolic 85–101; PULSE 85–99; RESP 16; TEMP 36.3; O2SAT 97–100
[2022-09-23 09:21] LABS: Appearance Urine Turbid (Clear); Bacteria Urine 4+ /hpf; Bilirubin Urine Negative (Negative); Blood Urine 3+ (Negative); Color Urine Yellow (Yellow); Glucose Urine UA Negative (Negative); Ketones Urine Negative (Negative); Leukocyte Esterase Ur 3+ LEU/UL (Negative); Nitrate Urine Negative (Negative); Non Pathogenic Casts 0-2; Protein Urine 2+ mg/dL (Negative); RBC Urine 51-100 /hpf (0-2); Specific Grav Ur 1.014 (1.001-1.035); Squamous Epithelial Cell Urine None seen /hpf (Few); Urobilinogen Urine 0.2 mg/dL (<2.0); WBC Urine >100 /hpf; pH Urine 5.5 (5.0-9.0)
--- NOTE | 2022-09-23 09:28 | ED.FEMALEGU ---
HPI - Female Genitourinary General Chief complaint: Urogenital-Female Stated complaint: pp complication Time Seen by Provider: 09/23/22 09:10 Source: patient Mode of arrival: ambulatory Limitations: no limitations History of Present Illness HPI Narrative: 37-year-old female presents today with complaints of right flank pain and burning on urination. Patient is 11 days . She has had burning with urination since delivery but thought that was normal because she does have sutures. Patient has recently seen her OB and was started on labetalol due to high blood pressure. Patient also states she was on labetalol for 3 days prior to being induced because of high blood pressure. Denies any lightheadedness, chest pain, dizziness. Denies fevers, body aches, chills. Is currently pumping. Related Data Home Medications Medication Instructions Recorded Confirmed prenat.vits,ihsan,[id number]-koip-aaafm 1 tablet PO DAILY 08/31/22 09/11/22 Allergies Allergy/AdvReac Type Severity Reaction Status Date / Time No Known Drug Allergies Allergy Unknown Other Verified 09/23/22 09:03 Review of Systems Review of Systems: CONSTITUTIONAL: Denies fever, chills, or sweats. EYES: Denies visual changes, redness, or discharge. CARDIOVASCULAR: Denies chest pain, palpitations, or edema. RESPIRATORY: Denies cough or dyspnea. GASTROINTESTINAL: Right flank pain. Denies nausea, vomiting, or diarrhea. GENITOURINARY: Dysuria. Unsure of hematuria patient 11 days . MUSCULOSKELETAL: Right flank pain denies joint pain, or myalgia. NEUROLOGIC: Denies headache, numbness, dizziness, or weakness. PSYCHIATRIC: Denies anxiety or depression. [facility] Family History Family History (Updated 08/31/22 @ 15:15 by Cynthia Barragan RN) Father Melanoma Diabetes mellitus Mother Breast cancer Father No problems noted. Sibling Right bundle branch block Social History Social History Smoking status: Never smoker Substance use: never Lack of Transportation: No Lack of Food: Never True Current Housing: I Have Housing Concerned About Future Housing: No Difficulty Paying Gas/Electric Bills: No Difficulty Paying for Meds: No Currently Unemployed: No Education: Master's Degree or Higher Difficulty w/ Childcare or Family Care: No Spiritual care concerns: No Exam Narrative: GENERAL: Well-appearing, well-nourished, and in no acute distress. HEAD: Normocephalic, atraumatic. EYES: PERRLA and EOMI. CHEST: Clear to auscultation. No respiratory distress. No wheezes rales or rhonchi HEART: Regular rate and rhythm. No murmur heard. Normal peripheral pulses. ABDOMEN: Soft, nontender, nondistended, normal active bowel sounds. +right sided CVA tenderness EXTREMITIES: Normal range of motion. No edema. SKIN: Warm, dry, no rash. NEURO: No focal deficits. Alert and oriented x3. PSYCH: Normal mood and affect. Course Course Emergency Course: Patient doing well without fever or chills. BP coming down after she took her dose of labetalol. Reviewed labs with patient. Urine consisted with infection and with elevated WBC and flank pain suspect pyleonephritis. No allergies and will treat with cipro which is compatible with breast feeding. Did discuss that peek concentration occurs 2 hours after taking the medication and that if she was able to work that around her pumping schedule it would decrease the amount of medication that the baby is exposed to. Patient in agreement with plan of care. Vital Signs Vital signs: Vital Signs Temperature 97.4 F L 09/23/22 08:57 Pulse Rate 99 09/23/22 08:57 Respiratory Rate 16 09/23/22 08:57 Blood Pressure 162/101 H 09/23/22 08:57 Pulse Oximetry 100 09/23/22 08:57 Oxygen Delivery Room Air 09/23/22 08:57 Temperature 97.4 F L 09/23/22 08:57 Pulse Rate 85 09/23/22 10:34 Respiratory Rate 16 09/23/22 10:34 Blood Pressure 132/85 09/23/22 10:34 Pulse Oxime
--- NOTE | 2022-09-23 09:37 | PC.NURSE ---
patient arrived with elevated BP. provider aware. patient took labetolol prior to walking into department. no further orders at this time. will continue to monitor
[2022-09-23 09:41] LABS: Basophils Percent Auto 0.2 % (0.2-1.2); Eosinophils Absolute Auto 0.2 K/mm3 (0-0.3); Eosinophils Percent Auto 1.6 % (0-4.4); Hematocrit 28.3 % (37.0-47.0); Hemoglobin 9.2 g/dL (12.0-15.0); Immature Granulocyte Absolute 0.11 K/mm3 (0.00-0.031); Immature Granulocyte Percent A 0.7 % (0-0.5); Lymphocytes Absolute Auto 1.38 K/mm3 (0.9-3.2); Lymphocytes Percent Auto 9.3 % (18.3-44.2); Mean Corpuscular HGB Conc 32.5 g/dl (32-36); Mean Corpuscular Hemoglobin 30.3 pg (26-34); Mean Corpuscular Volume 93.1 fl (80-100); Mean Platelet Volume 8.1 fl (7.4-10.4); Monocytes Absolute Auto 0.7 K/mm3 (0.1-0.6); Monocytes Percent Auto 4.6 % (2.6-8.5); Neutrophils Absolute Auto 12.4 K/mm3 (1.3-6.7); Neutrophils Percent Auto 83.6 % (45.5-73.1); Platelet Count Result 367 k/mm3 (150-375); Red Blood Count 3.04 M/mm3 (4.2-5.4); Red Cell Distribution Width 17.4 % (11.5-14.5); White Blood Count 14.8 K/mm3 (4.5-10.0)
[2022-09-23 09:42] LABS: Add Urine Microscopic? YES
[2022-09-23 09:52] LABS: Alanine Aminotransferase 26 U/L (6-35); Albumin Level 3.7 g/dL (3.5-5.1); Alkaline Phosphatase 121 U/L (38-126); Anion Gap 7 mmol/L (8-16); Aspartate Amino Transferase 31 U/L (14-36); Bilirubin,Total 0.3 mg/dL (0.2-1.3); Blood Urea Nitrogen 13 mg/dL (7-17); Calcium 9.3 mg/dL (8.4-10.2); Carbon Dioxide 26 mmol/L (22-30); Chloride 105 mmol/L (98-107); Estimated CRCL calculation 97 ml/min; Estimated Glomerular Filt Rate > 60; Glucose 102 mg/dL (65-110); Potassium 4.3 mmol/L (3.4-5.0); Sodium 138 mmol/L (137-145)
== END 2022-09-23 10:35 | disposition home or self-care (01) ==
PROVIDERS: Emergency Medicine; Emergency Provider Nurse Practitioner Family; PCP Pediatrics
DX: O86.21 Infection of kidney following delivery (principal); O13.5 Gestational [pregnancy-induced] hypertension without significant proteinuria, complicating the puerperium
CPT/HCPCS: 36415; 80053; 81001; 85025; 87077; 87086; 87186; 99283

== ENCOUNTER 2024-05-08 14:01 | Outpatient (CLI) | payer OTHER, SELFPAY ==
--- NOTE | 2024-05-08 | ECG_ITS ---
Test Date: 2024-05-08 14:25:53 Measurements Intervals Story Rate: 75 P: 36 CA: 144 QRS: 56 QRSD: 108 T: 45 QT: 377 QTc: 423 Interpretive Statements SINUS RHYTHM ST DEVIATION AND MODERATE T-WAVE ABNORMALITY, CONSIDER ANTERIOR ISCHEMIA [-0.1+ mV T-WAVE IN V3/V4] No previous ECG available for comparison Electronically Signed On 05-09-2024 16:15:22 [employer] OFFICER by Jenna Hylton M.D.
--- OUTSIDE RECORDS SUMMARY | 2024-05-08 15:21 | XMS_ITS | Encounter Summary ---
Author Organization [facility] Address [facility] [place] [address] Care Team Providers Care Baker Chef Name Role Phone Jignesh Nguyen MD Primary Care Provide r Encounter Details Date Type Department Care Team (Late st Contact Info) Description 06/19/2011 Abstract [facility] Conversion Md, Generic Conversion, Social History Tobacco Use Types Packs/Day Years Used Date Smoking Tobacco: Never Assessed Comments Unknown Sex and Gender Information Value Date Recorded Sex Assigned at Not on file Legal Sex Female 7:45 PM CDT Gender Identity Not on file Sexual Orientation Not on file documented as of this encounter Plan of Treatment Not on file documented as of this encounter Visit Diagnoses Not on filedocumented in this encounter Care Teams Baker Chef Relationship Specialty [place] [address] [place] [address] PCP - General INTERNAL MEDICINE 02/21/18 documented as of this encounter
--- OUTSIDE RECORDS SUMMARY | 2024-05-08 15:21 | XMS_ITS | Clinical Summary ---
Author Organization [facility] Address [facility] [place] [address] Care Team Providers Care Floor Plan Adjuster Name Role Phone Jignesh Nguyen MD Primary Care Provide r Allergies No known active allergies Medications Vziakyrg-Ojh-Yv- FA (PRE-CLEO OR) Take 1 tablet by mouth daily. Active Active Problems Problem Noted Date Diagnosed Date Acne, unspecified acne type 10/28/2020 Melanocytic nevus of trunk 10/28/2020 Pure hypercholesterolemia 11/25/2012 Overview (02/22/2018): Pure hypercholesterolemia Family History Medical History Relation Comments Cancer Father melanoma Cancer Maternal Grandfather colon cance r Cancer Paternal Grandmother Breast canc er Relation Status Comments Father Maternal Grandfather Paternal Grandmother Social History Tobacco Use Types Packs/Day Years Used Date Smoking Tobacco: Never Passive Smoke Exposure: Never Smokeless Tobacco: Never Alcohol Use Standard Drinks/Week Comments Yes 0 (1 standard drink = 0.6 oz pur e alcohol) AUDIT-C Answer Date Recorded Frequency of Alcohol Consumption Monthly or less 08/28/2019 Average Number of Drinks Not on file 020 Frequency of Binge Drinking Not on file 08/04 PHQ-2 Answer Date Recorded Patient Health Questionnaire-2 Score 0 02/04/2024 Comments No Sex and Gender Information Value Date Recorded Sex Assigned at Not on file Legal Sex Female 7:45 PM CDT Gender Identity Not on file Sexual Orientation Not on file Last Filed Vital Signs Vital Sign Reading Time Taken Comments Blood Pressure 116/80 02/04/2024 2:27 PM SELF PAY SPECIALIST Pulse 87 02/04/2024 2:27 PM SELF PAY SPECIALIST Temperature 36.8 C (98.2 F) 02/04/2024 2:27 PM SELF PAY SPECIALIST Respiratory Rate 18 02/04/2024 2:27 PM SELF PAY SPECIALIST Oxygen Saturation 100% 02/04/2024 2:27 PM SELF PAY SPECIALIST Inhaled Oxygen Concentration - - Weight 69.9 kg (154 lb) 02/04/2024 2:27 PM SELF PAY SPECIALIST Height 165.1 cm (5' 5 ) 02/04/2024 2:27 PM SELF PAY SPECIALIST Body Mass Index 25.63 02/04/2024 2:27 PM SELF PAY SPECIALIST Plan of Treatment Health Maintenance Due Date Last Done Comments Annual Physical 1989 Hepatitis C 2004 DTaP, Tdap and Td Vaccines ( 1 - Tdap) 2005 Hepatitis B Vaccines (1 of 3 - 19+ 3-dose series) 2005 Cervical Cancer Screening Pa p Smear (Age 30 to 64) Every 3 Years 10/25/2021 10/25/2018 Cervical Cancer Screening Pa p with HPV Testing (Age 30 to 64) Every 5 Years 10/26/2023 10/25/2018 Cervical Cancer Screening with HPV 10/26/2023 COVID-19 Vaccine ( - 2023-2 5 season) 2023 Influenza Adult (#1) 2023 PHQ-2 (Physician [place]) 03/05/2024 02/04/2024 PHQ-2 (Physician [place]) 02/03/2025 02/04/2024 HPV Vaccines Aged Out No longer eligi ble based on patient's age to complete this topic Meningococcal B Vaccine Aged Out No l onger eligible based on patient's age to complete this topic Meningococcal Vaccine Aged Out No sophie mark eligible based on patient's age to complete this topic Pneumococcal Vaccine: Pediat rics (0 to 5 Years) and At-Risk Patients (6 to 64 Years) Aged Out No longer eligi ble based on patient's age to complete this topic RSV Immunizations Under 20 Months Aged Out No longer eligible based on patient's age to complete this topic Procedures Procedure Name Priority Date/Time Associated Diagnosis Comments HPV MRNA E6/E7 Routine 10/25/2018 3:15 PM CDT CYTOPATH CERV/VAG THIN LAYER Routine 10/25/2018 12:00 AM CDT from Last 3 Months or Most Recently Relevant to Health Maintenance Results * HPV MRNA E6/E7 (10/25/2018 3:15 PM CDT) HPV MRNA E6/E7 Not Detected NOT DETECTED 10/30/2018 12:26 AM CDT [employer] CHELSEA GUME Comment: This test was performed using the APTIMA(R) HPV Assay ([employer] This assay detects E6/E7 viral messenger RNA (mRNA) from 14 high-risk HPV types (16,18,31,33,35,39,45,51, 52,56,58,59,66,68). For additional information please refer to: http://education.[employer]/faq/FGM003v7 (This link is being provided for informational/ educational purposes only.) The analytical performance characteristics of this assay have been determined by [employer] [place], [place]. The modifications have not been cleared or approved by the FDA. This assay has been validated pursuant to the CLIA regulations and is used for clinical purposes. Test Performed by [facility], [facility] [place], [address] [place] [address] Rick Blanca M.D., Ph.D., Director of Laboratories , CLIA [id number] 10/25/2018 3:15 PM CDT Rowan Kebede NP PATHOLOGY/CYTOLOGY ORDERABLES Final Result [facility] [id number] [place], [place] , * Cytopath Cerv/Vag Thin Layer (10/25/2018 12:00 AM CDT) Pathologist [facility] [place] COPATH REPORT [address] [phone] Department of Pathology Pathology Report Gynecological Cytology Report Patient Name: THANHCHIDI PAULO : 1985 (Age: 33) Location: [facility] Gender: F Collected Date: 10/25/2018 Med Rec #: [id number] Date Received: 10/28/2018 Date Reported: 10/30/2018 Provider: ROWAN KEBEDE Other Case Numbers [id number] Final Cytologic Diagnosis Satisfactory for evaluation. Endocervical component present. Negative for Intraepithelial Lesion or Malignancy. High-risk HPV mRNA E6/E7 by Aptima assay (performed at [facility]) is reported as NOT DETECTED (see separate report for details). This case was signed out at [facility], [address] [place] [id number]. Electronically Signed Out KATARZYNA Logan Source of Specimen(s) Cervical/Endocervi ihsan - Thin Prep Clinical History Screening, last Pap 07/21/2016, wnl. Z12.4 Date of Last Menstrual Period: 09/24/2018 Billing Fee Code(s): A: 455[address] [facility] () [facility] 10/25/2018 10/28/2018 7:4 2 AM CDT Comment:CERVICAL/ENDOCERVICA L - THIN PREP us Rowan Kebede SPORTS ATTORNEY PATHOLOGY/CYTOLOGY ORDERABLES Final Result [facility] () [facility] [address] [place] [address], from Last 3 Months or Most Recently Relevant to Health Maintenance Insurance [facility] Care Teams Floor Plan Adjuster Relationship Specialty [place] [address] [place] [address] PCP - General INTERNAL MEDICINE 02/21/18
--- OUTSIDE RECORDS SUMMARY | 2024-05-08 15:21 | XMS_ITS | Encounter Summary ---
Author Organization [facility] Address [facility] [place] [address] Care Team Providers Care Ebd Special Education Teacher Name Role Phone Jignesh Nguyen MD Primary Care Provide r Encounter Details Date Type Department Care Team (Latest Contact Info) Description 10/31/2017 Abstract [facility] Shlomo Nguyen MD Social History Tobacco Use Types Packs/Day Years [...] on filedocumented in this encounter Care Teams Ebd Special Education Teacher Relationship Specialty [place] [address] [place] [phone] PCP - General INTERNAL MEDICINE 02/21/18 documented as of this encounter
--- OUTSIDE RECORDS SUMMARY | 2024-05-08 15:21 | XMS_ITS | Clinical Summary ---
Author Organization [facility] Address [address] [facility] [place] [address] Care Team Providers Care Setter Induction Heating Equipment Name Role Phone Jignesh Nguyen MD Primary Care Provide r Source Comments [facility],non-owned Affiliates and Associated Physician Practices is amultiple site organization consisting of ambulatory clinics and hospital sitesin [place], [place], [place] and [place]. This disclosure is being madepursuant to the Care Everywhere program and may not contain all information available regarding this patient. Last updated 17.[facility] Social History Tobacco Use Types Packs/Day Years Used Date Smoking Tobacco: Never Assessed Sex and Gender Information Value Date Recorded Sex Assigned at Not on file Gender Identity Not on file Sexual Orientation Not on file Plan of Treatment Health Maintenance Due Date Last Done Comments PAP SMEAR 1985 HIV SCREENING 2001 HEPATITIS C SCREENING 06/09/2004 DTAP/TDAP/TD VACCINES (1 - Tdap) 2005 HEPATITIS B VACCINE (1 of 3 - 19+ 3-dose series) 2005 COVID-19 VACCINE ( - 2023-2 5 season) 2023 INFLUENZA VACCINE (#1) 2023 DEPRESSION SCREENING 03/05/2024 ZOSTER VACCINE (1 of 2) 2036 HIB VACCINE Aged Out No longer eligi ble based on patient's age to complete this topic HPV VACCINE Aged Out No longer eligi ble based on patient's age to complete this topic MENINGOCOCCAL (Group B) VACCINE Aged Out No longer eligible based on patient's age to complete this topic MENINGOCOCCAL VACCINE Aged Out No sophie mark eligible based on patient's age to complete this topic PNEUMOCOCCAL VACCINE Aged Out No long er eligible based on patient's age to complete this topic Care Teams Setter Induction Heating Equipment Relationship Specialty Start Date End Date Jignesh Nguyen MD [address] [place] [address] PCP - General 04/07/22
--- OUTSIDE RECORDS SUMMARY | 2024-05-08 15:21 | XMS_ITS | Referral Summary ---
Author Organization [facility] Address [address] [place] [address] Care Team Providers Care Case Managers Name Role Phone Jignesh Nguyen MD Primary Care Provide r Source Comments [facility],non-owned Affiliates and Associated Physician Practices is amultiple site organization consisting of ambulatory clinics and hospital sitesin [place], [place], [place] and [place]. This disclosure is being madepursuant to the Care Everywhere program and may not contain all information available regarding this patient. Last updated 17.[facility] [employer] Social History Tobacco Use Types Packs/Day Years Used Date Smoking Tobacco: Never Assessed Sex and Gender Information Value Date Recorded Sex Assigned at Not on file Gender Identity Not on file Sexual Orientation Not on file Plan of Treatment Not on file Care Teams Case Managers Relationship Specialty Start Date End Date Jignesh Nguyen MD [address] [place] [address] PCP - General 04/07/22
--- OUTSIDE RECORDS SUMMARY | 2024-05-08 15:21 | XMS_ITS | Encounter Summary ---
Author Organization [facility] Address [address] [place] [address] Care Team Providers Care Media Librarian Name Role Phone Jignesh Nguyen MD Primary Care Provide r Encounter Details Date Type Department Care Team (Late st Contact Info) Description 09/24/2023 Lab Requisition [facility] - DermPath Lab [address] [place] [phone] Gretel Bustamante MD [address] [place] [address] Social History Tobacco Use Types Packs/Day Years Used Date Smoking Tobacco: Never Assessed Sex and Gender Information Value Date Recorded Sex Assigned at Not on file Gender Identity Not on file Sexual Orientation Not on file documented as of this encounter Plan of Treatment Not on file documented as of this encounter Procedures Procedure Name Priority Date/Time Associated Diagnosis Comments DERMATOPATHOLOGY Routine 09/24/2023 2:54 PM CDT documented in this encounter Results * DERMATOPATHOLOGY (09/24/2023 2:54 PM CDT) Case Report Dermatopathology Report Case: [id number] Authorizing Provider: Gretel Bustamante MD Collected: 09/24/2023 02:54 PM Ordering Location: [facility] Physician [facility] - Received: 09/25/2023 10:15 AM DermPath Lab Pathologist: Radha Coronado MD Specimen: Skin, right lower eyelid 3:59 PM CDT DERMATOPATHOLOGY LABORATORY Final Diagnosis Specimen A. 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 The specimen consists of a shave biopsy measuring 3x2x2 mm. Jar 0. 3:59 PM CDT DERMATOPATHOLOGY LABORATORY Microscopic Description Specimen A. SKIN, right lower eyelid: There are nests of melanocytes at the dermal-epidermal junction and within the dermis. Additional deeper sections were obtained and reviewed. 3:59 PM CDT DERMATOPATHOLOGY LABORATORY Disclaimer An external and internal positive and negative controls are appropriate for the histochemical, immunohistochemical and immunofluorescence stain(s) in this case (if any), except where stated explicitly. The performance characteristics of the stain(s) cited in this report were developed and its performance characteristic determined by the Dermatopathology Laboratory at [facility], directed by Dr. Sophia Flores. These tests need not be, and therefore are not, approved by the [place] Food and Drug Administration. The tests are used for clinical purposes. Billing Codes Specimen Charges Stain Charges 55741 1 3:59 PM CDT DERMATOPATHOLOGY LABORATORY Embedded Images 3:59 PM CDT DERMATOPATHOLOGY LABORATORY Pathology/Cytolo gy TISSUE SPECIMEN FROM SKIN / Unknown 09/24/2023 2:54 PM CDT 09/25/2023 10:15 AM CDT Gretel Bustamante MD LAB - PATHOLOGY/CYTO LOGY ORDERABLES DERMATOPATHOLOGY LABORATORY [facility] - Department of Dermatology [address], [address] [phone] documented in this encounter Visit Diagnoses Not on filedocumented in this encounter Care Teams Media Librarian Relationship Specialty Start Date End Date Jignesh Nguyen MD [address] [place] [address] PCP - General 04/07/22 documented as of this encounter
--- OUTSIDE RECORDS SUMMARY | 2024-05-08 15:21 | XMS_ITS | Encounter Summary ---
Author Organization [facility] Address [facility] [place] [address] Care Team Providers Care Seconds Handler Name Role Phone Jignesh Nguyen MD Primary Care Provide r Encounter Details Date Type Department Care Team (Late st Contact Info) Description 10/31/2011 Abstract [facility] Conversion Md, Generic Conversion, Social History [...] on filedocumented in this encounter Care Teams Seconds Handler Relationship Specialty [place] [address] [place] [address] PCP - General INTERNAL MEDICINE 02/21/18 documented as of this encounter
--- OUTSIDE RECORDS SUMMARY | 2024-05-08 15:21 | XMS_ITS | Patient Health Summary ---
Author Organization [facility] Address [address] [facility] [place] [address] Care Team Providers Care Isotope Technologist Name Role Phone Jignesh Nguyen MD Primary Care Provide r Note from [facility],non-owned Affiliates and Associated Physician Practices is amultiple site organization consisting of ambulatory clinics and hospital sitesin [place], [place], [place] and [place]. This disclosure is being madepursuant to the Care Everywhere program and may not contain all information available regarding this patient. Last updated 17.[facility] Social History Tobacco Use Types Packs/Day Years Used Date Smoking Tobacco: Never Assessed Sex and Gender Information Value Date Recorded Sex Assigned at Not on file Gender Identity Not on file Sexual Orientation Not on file Procedures * DERMATOPATHOLOGY(Performed 09/24/2023) * DERMATOPATHOLOGY(Performed 12/13/2022) Results * DERMATOPATHOLOGY (09/24/2023 2:54 PM CDT) Only the most recent of2 resultswithin the time period is included. Case Report Dermatopathology Report Case: [id number] Authorizing Provider: Gretel Bustamante MD Collected: 09/24/2023 02:54 PM Ordering Location: [facility] - Received: 09/25/2023 10:15 AM DermPath Lab Pathologist: Radha Coronado MD Specimen: Skin, right lower eyelid 3:59 PM CDT DERMATOPATHOLOGY LABORATORY Final Diagnosis Specimen A. SKIN, right lower eyelid: COMPOUND MELANOCYTIC NEVUS (D22.112) (see microscopic description) 4 3:59 PM CDT DERMATOPATHOLOGY LABORATORY Clinical History R/O Nevus 4 3:59 PM CDT DERMATOPATHOLOGY LABORATORY Gross Description [...] Additional deeper sections were obtained and reviewed. 4 3:59 PM CDT DERMATOPATHOLOGY LABORATORY Disclaimer An external and internal positive and negative controls are appropriate for the histochemical, immunohistochemical and immunofluorescence stain(s) in this case (if any), except where stated explicitly. The performance characteristics of the stain(s) cited in this report were developed and its performance characteristic determined by the Dermatopathology Laboratory at [facility], directed by Dr. Sophia Flores. These tests need not be, and therefore are not, approved by the [place] Food and Drug Administration. The tests are used for clinical purposes. Billing Codes Specimen Charges Stain Charges 76223 1 4 3:59 PM CDT DERMATOPATHOLOGY LABORATORY Embedded Images 3:59 PM CDT DERMATOPATHOLOGY LABORATORY Pathology/Cytolo gy TISSUE SPECIMEN FROM SKIN / Unknown 09/24/2023 2:54 PM CDT 09/25/2023 10:15 AM CDT Gretel Bustamante MD LAB - PATHOLOGY/CYTO LOGY ORDERABLES DERMATOPATHOLOGY LABORATORY [facility] - Department of Dermatology [facility] Medicine [address] [place] [address], [address] [phone] Care Teams Isotope Technologist Relationship Specialty [place] [address] [place] [address] PCP - General 04/07/22
--- OUTSIDE RECORDS SUMMARY | 2024-05-08 15:21 | XMS_ITS | Encounter Summary ---
Author Organization [facility] Address [address] [place] [address] Care Team Providers Care High School Music Director Name Role Phone Jignesh Nguyen MD Primary Care Provide r Encounter Details Date Type Department Care Team (Late st Contact Info) Description 12/13/2022 Lab Requisition [facility] - DermPath Lab [address] [facility], [place] [phone] Dariela Yang MD [address] [facility] [address] [place] [address] Social History Tobacco Use Types Packs/Day Years Used Date Smoking Tobacco: Never Assessed Sex and Gender Information Value Date Recorded Sex Assigned at Not on file Gender Identity Not on file Sexual Orientation Not on file documented as of this encounter Plan of Treatment Not on file documented as of this encounter Procedures Procedure Name Priority Date/Time Associated Diagnosis Comments DERMATOPATHOLOGY Routine 12/13/2022 11:0 7 AM CDT documented in this encounter Results * DERMATOPATHOLOGY (12/13/2022 11:07 AM CDT) Case Report Dermatopathology Report Case: [id number] Authorizing Provider: Dariela Yang MD Collected: 12/13/2022 11:07 AM Ordering Location: [facility] Derm[facility] Lab Received: 12/14/2022 06:29 AM Pathologist: Roxana Yepez MD Specimen: Skin, upper abdomen 1:59 PM CDT DERMATOPATHOLOGY LABORATORY Final Diagnosis Specimen A. SKIN, upper abdomen: INTRADERMAL MELANOCYTIC NEVUS WITH CONGENITAL FEATURES (D22.9) 1:59 PM CDT DERMATOPATHOLOGY LABORATORY Clinical History Brown Irritated Nevus R/O Atypia 1:59 PM CDT DERMATOPATHOLOGY LABORATORY Gross Description Specimen A: Received is one formalin filled container labeled with the patient's name and designated upper abdomen. The specimen consists of a shave biopsy measuring 5x4x2 mm. Jar 0. 1:59 PM CDT DERMATOPATHOLOGY LABORATORY Microscopic Description Specimen A. SKIN, upper abdomen: There are nests of cytologically bland melanocytes within the dermis. Some of these melanocytes are concentrated around blood vessels and adnexal structures. 1:59 PM CDT DERMATOPATHOLOGY LABORATORY Disclaimer An external and internal positive and negative controls are appropriate for the histochemical, immunohistochemical and immunofluorescence stain(s) in this case (if any), except where stated explicitly. The performance characteristics of the stain(s) cited in this report were developed and its performance characteristic determined by the Dermatopathology Laboratory at [facility], directed by Dr. Sophia Flores. These tests need not be, and therefore are not, approved by the [place] Food and Drug Administration. The tests are used for clinical purposes. Billing Codes Specimen Charges Stain Charges 22977 1 1:59 PM CDT DERMATOPATHOLOGY LABORATORY Embedded Images 1:59 PM CDT DERMATOPATHOLOGY LABORATORY Pathology/Cytolo gy TISSUE SPECIMEN FROM SKIN / Unknown 12/13/2022 11:07 AM CDT 12/14/2022 6:29 AM CDT Dariela Yang MD LAB - PATHOLOGY/CYT OLOGY ORDERABLES DERMATOPATHOLOGY LABORATORY [facility] - Department of Dermatology [address], [address] [phone] documented in this encounter Visit Diagnoses Not on filedocumented in this encounter Care Teams High School Music Director Relationship Specialty Start Date End Date Jignesh Nguyen MD [address] [place] [address] PCP - General 04/07/22 documented as of this encounter
== END 2024-05-08 14:02 | disposition home or self-care (01) ==
PROVIDERS: PCP Pediatrics; Visit Provider Obstetrics & Gynecology
DX: R00.2 Palpitations (principal)
CPT/HCPCS: 93005